=== PATIENT | male | born 1985 | race Caucasian/White ===

== ENCOUNTER 2018-07-05 09:12 | Emergency (ER) | payer OTHER ==
[2018-07-05 09:32] VITALS: BP 134/77
--- NOTE | 2018-07-05 10:01 | UC ---
Throat Pain/Nasal Samson HPI - HPI Summary HPI Summary: Has had 1 mo. of facial pain, post nasal drip which causes cough and feeling ill. Has 1 sick contact. - History of Current Complaint Chief Complaint: UCRespiratory Stated Complaint: COUGH SORE THROAT RESP ISSUE Time Seen by Provider: 07/05/18 09:54 Hx Obtained From: Patient Onset/Duration: Gradual Onset Severity: Mild Pain Intensity: 0 Pain Scale Used: 0-10 Numeric Cough: Nonproductive Associated Signs & Symptoms: Positive: Sinus Discomfort. Negative: Drooling, Wheezing, Nasal Discharge - Epiglottits Risk Factors Epiglottis Risk Factors: Negative - Allergies/Home Medications Allergies/Adverse Reactions: Allergies Allergy/AdvReac Type Severity Reaction Status Date / Time amoxicillin Allergy Hives Verified 07/05/18 09:40 erythromycin base Allergy Hives Verified 07/05/18 09:40 Penicillins Allergy Hives Verified 07/05/18 09:40 Home Medications: Home Medications Losartan TAB* [Cozaar TAB*] 25 mg PO DAILY 07/05/18 [History Confirmed 07/05/18] Marijuana 10 puff INH DAILY 07/05/18 [History Confirmed 07/05/18] Metoprolol Tartrate TAB* [Lopressor TAB*] 25 mg PO BID 07/05/18 [History Confirmed 07/05/18] Omeprazole CAP* [Prilosec CAP* 20 MG] 20 mg PO DAILY 07/05/18 [History Confirmed 07/05/18] PMH/Surg Hx/FS Hx/Imm Hx Previously Healthy: Yes - Surgical History Surgical History: Yes Surgery Procedure, Year, and Place: R hand - Social History Alcohol Use: Rare Substance Use Type: Marijuana Substance Use Comment - Amount & Last Used: states "has medical card" Smoking Status (MU): Never Smoked Tobacco Review of Systems All Other Systems Reviewed And Are Negative: Yes Constitutional: Positive: Negative Skin: Positive: Negative ENT: Positive: Dental Pain, Sore Throat, Sinus Congestion, Sinus Pain/Tenderness Respiratory: Positive: Cough Cardiovascular: Positive: Negative Gastrointestinal: Positive: Negative Neurological: Negative: Headache Physical Exam Triage Information Reviewed: Yes Appearance: Well-Appearing Vital Signs: Initial Vital Signs Temp 99 F 07/05/18 09:24 Pulse 86 07/05/18 09:24 Resp 16 07/05/18 09:24 BP 134/77 07/05/18 09:24 Pulse Ox 98 07/05/18 09:24 ENT: Positive: Pharynx normal, Nasal congestion, Dental tenderness, Sinus tenderness, Uvula midline, Other - +post nasal dirp Respiratory Exam: Normal Cardiovascular Exam: Normal Skin Exam: Normal Throat Pain/Nasal Course/Dx - Course Assessment/Plan: Given duration of nasal congestion and sinus tenderness on exam will tx for bacterial source. Vitals good. Allergies noted. He also wanted a refill of his home medication of omeprazole which I obliged. - Differential Dx/Diagnosis Differential Diagnosis/HQI/PQRI: Influenza, Sinusitis, Tonsillitis, URI Provider Diagnosis: Bacterial sinusitis Discharge - Sign-Out/Discharge Documenting (check all that apply): Patient Departure All imaging exams completed and their final reports reviewed: No Studies - Discharge Plan Condition: Good Disposition: HOME Prescriptions: DOXYcycline CAP(*) [DOXYcycline 100MG CAP(*)] 100 mg PO BID 5 Days #10 cap Omeprazole CAP* [Prilosec CAP* 20 MG] 20 mg PO BID #60 cap. Patient Education Materials: Sinusitis (ED) Referrals: No Primary Care Phys,NOPCP [Primary Care Provider] - [facility] [Outside] Additional Instructions: follow up with primary care for any medication. - Billing Disposition and Condition Condition: GOOD Disposition: Home
== END 2018-07-05 10:07 | disposition home or self-care (01) ==
LOC: UCEAST 09:12
DX: J32.9 Chronic sinusitis, unspecified (principal); B96.89 Other specified bacterial agents as the cause of diseases classified elsewhere; K08.89 Other specified disorders of teeth and supporting structures; Z88.0 Allergy status to penicillin; Z88.1 Allergy status to other antibiotic agents
CPT/HCPCS: 99212; G0463

== ENCOUNTER 2018-09-18 13:52 | Emergency (ER) | payer OTHER ==
[2018-09-18 13:57] VITALS: BP 122/71
--- NOTE | 2018-09-18 14:08 | UC ---
Throat Pain/Nasal Samson HPI - HPI Summary HPI Summary: 32 yo male presents with sinus pain/pressure/congestion for the last 10 days. He tells me that he has had sinus infections many times in the past and this feels the same. Has not been taking anything OTC for his symptoms. Has felt feverish at times, but has not taken his temperature. Denies sore throat, cough , n/v. - History of Current Complaint Chief Complaint: UCRespiratory Stated Complaint: FLU LIKE SYM Time Seen by Provider: 09/18/18 14:08 Hx Obtained From: Patient Onset/Duration: Gradual Onset Severity: Moderate Pain Intensity: 7 Pain Scale Used: 0-10 Numeric - Allergies/Home Medications Allergies/Adverse Reactions: Allergies Allergy/AdvReac Type Severity Reaction Status Date / Time amoxicillin Allergy Hives Verified 07/05/18 09:40 erythromycin base Allergy Hives Verified 07/05/18 09:40 Penicillins Allergy Hives Verified 07/05/18 09:40 PMH/Surg Hx/FS Hx/Imm Hx Endocrine History: Dyslipidemia Cardiovascular History: Hypertension GI/ History: Gastroesophageal Reflux - Surgical History Surgical History: Yes Surgery Procedure, Year, and Place: R hand - Family History Known Family History: Positive: None - Social History Lives: With Family Alcohol Use: None Substance Use Type: Marijuana Substance Use Comment - Amount & Last Used: states "has medical card" Smoking Status (MU): Never Smoked Tobacco Review of Systems All Other Systems Reviewed And Are Negative: Yes Constitutional: Positive: Negative Skin: Positive: Negative Eyes: Positive: Negative ENT: Positive: Nasal Discharge, Sinus Congestion, Sinus Pain/Tenderness Respiratory: Positive: Negative Cardiovascular: Positive: Negative Gastrointestinal: Positive: Negative Neurovascular: Positive: Negative Neurological: Positive: Negative Psychological: Positive: Negative Physical Exam - Summary Physical Exam Summary: GENERAL: NAD. WDWN. No pain distress. SKIN: No rashes, sores, lesions, or open wounds. HEENT: Head: AT/NC Eyes: EOM intact. Conjunctiva clear without inflammation or discharge. Ears: Hearing grossly normal. TMs intact, no bulging, erythema, or edema. Nose: Nasal mucosa without erythema or edema and without discharge. TTP maxillary and frontal sinus. Throat: Posterior oropharynx without exudates, erythema, or tonsillar enlargement. Uvula midline. NECK: Supple. Nontender. No lymphadenopathy. CHEST: CTAB. No r/r/w. No accessory muscle use. Breathing comfortably and in no distress. CV: RRR. Without m/r/g. Pulses intact. NEURO: Alert. PSYCH: Age appropriate behavior. Triage Information Reviewed: Yes Vital Signs: Initial Vital Signs Temp 98 F 09/18/18 13:55 Pulse 65 09/18/18 13:55 Resp 16 09/18/18 13:55 BP 122/71 09/18/18 13:55 Pulse Ox 100 09/18/18 13:55 Vital Signs Reviewed: Yes Throat Pain/Nasal Course/Dx - Course Course Of Treatment: Sinusitis - pt prefers to be on antibiotics on this time and does not want to try OTC medications. - Differential Dx/Diagnosis Provider Diagnosis: Sinusitis Discharge - Sign-Out/Discharge Documenting (check all that apply): Patient Departure All imaging exams completed and their final reports reviewed: No Studies - Discharge Plan Condition: Stable Disposition: HOME Prescriptions: DOXYcycline CAP(*) [DOXYcycline 100MG CAP(*)] 100 mg PO BID #20 cap Patient Education Materials: Sinusitis (ED) Referrals: No Primary Care Phys,NOPCP [Primary Care Provider] - Additional Instructions: If you develop a fever, shortness of breath, chest pain, new or worsening symptoms - please call your PCP or go to the ED. - Billing Disposition and Condition Condition: STABLE Disposition: Home
== END 2018-09-18 14:19 | disposition home or self-care (01) ==
LOC: UCEAST 13:52
DX: J32.9 Chronic sinusitis, unspecified (principal); Z88.0 Allergy status to penicillin; Z88.1 Allergy status to other antibiotic agents; I10 Essential (primary) hypertension
CPT/HCPCS: 99212; G0463

== ENCOUNTER 2018-10-04 09:27 | Emergency (ER) | payer OTHER ==
--- NOTE | 2018-10-04 10:24 | UC ---
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 Pt reports while boarding done [employer], he was cross by a skier and he fell on his Rt knee. He was able to walk down hill after injury. He irrigated abrasion and applied Neosporyn topical antibiotic and took Ibuprofen. This morning pain in his knee worsen w/ mil swelling around abrasion. He took Ibuprofen PO again around 0900AM and pain now is 4/10 now. Pt denies fever, numbness or tingling sensation over the Rt lower extremity, SOB, calf pain, abdominal pain, N/V/d. - History of Current Complaint Chief Complaint: UCLowerExtremity Stated Complaint: R KNEE INJURY Time Seen by Provider: 10/04/18 10:12 Hx Obtained From: Patient Onset/Duration: Sudden Onset, Lasting Days - 1 day, Still Present, Worse Since - today Severity Initially: Severe Severity Currently: Moderate Pain Intensity: 8 Pain Scale Used: 0-10 Numeric Character: Sharp Aggravating Factor(s): Movement, Prolonged Standing, Stairs Alleviating Factor(s): Rest, OTC Meds Associated Signs And Symptoms: Positive: Swelling, Bruising. Negative: Fever, Weakness, Numbness, Tingling Able to Bear Weight: Yes - Risk Factors Septic Arthritis Risk Factor: Negative Gout Risk Factor: Negative - Allergies/Home Medications Allergies/Adverse Reactions: Allergies Allergy/AdvReac Type Severity Reaction Status Date / Time amoxicillin Allergy Hives Verified 10/04/18 09:48 erythromycin base Allergy Hives Verified 10/04/18 09:48 Penicillins Allergy Hives Verified 10/04/18 09:48 PMH/Surg Hx/FS Hx/Imm Hx Previously Healthy: Yes Other Endocrine History: IPP Cardiovascular History: Cardiac Disease, Atrial Fibrillation - Surgical History Surgical History: Yes Surgery Procedure, Year, and Place: R hand - Family History Known Family History: Positive: Cardiac Disease - Social History Occupation: Unemployed Lives: With Family Alcohol Use: None Substance Use Type: Marijuana Substance Use Comment - Amount & Last Used: states "has medical card" Smoking Status (MU): Never Smoked Tobacco Review of Systems All Other Systems Reviewed And Are Negative: Yes Constitutional: Positive: Negative Skin: Positive: Bruising - over RT knee s/p fall, Other - Rt knee abrasion w/ mild swelling, minor abrasions over Rt hand and Rt side of hip ENT: Positive: Negative Respiratory: Positive: Negative Cardiovascular: Positive: Negative Gastrointestinal: Positive: Negative Genitourinary: Positive: Negative Motor: Positive: Negative Neurovascular: Positive: Negative Musculoskeletal: Positive: Decreased ROM - RT knee, Other: - RT knee pain s/p fall Neurological: Positive: Negative Psychological: Positive: Negative Is Patient Immunocompromised?: No Physical Exam - Summary Physical Exam Summary: Vital Signs Reviewed: Yes General: well developed, well nourished male sitting in the examining table w/o any apparent distress Eyes: Positive: Conjunctiva Clear - PERRLA, EOMI, fundi grossly normal ENT: Positive: Normal ENT inspection, Hearing grossly normal, Pharynx normal, TMs normal Neck: Positive: Supple, Nontender, No Lymphadenopathy Respiratory: Positive: Chest nontender, Lungs clear, Normal breath sounds, No respiratory distress Cardiovascular: Positive: RRR, No Murmur, Pulses Normal, Brisk Capillary Refill Abdomen Description: Positive: Nontender, No Organomegaly, Soft. Negative: CVA Tenderness (R), CVA Tenderness (L) Bowel Sounds: Positive: Present Musculoskeletal: Positive: Strength Intact, No Edema, Other: - Knee: Pt is able to bear weight and ambulate with limping. No surface trauma, mild soft tissue swelling over the medial superior quadrant, moderate abrasion w/ mild erythema over the patella, no obvious effusion. The L knee is without obvious asymmetry or deformity when compared with the R knee. Decreased ROM of RT knee due to pain. Positive tenderness to palpation of the patella, no effusion or ballottement. No tenderness over the infrapatellar tendon. Point tenderness over the medial joint line, No tenderness over the medial or lateral tibial plateaus. No tenderness over the proximal fibular head, No tenderness, fullness or mass of the popliteal fossa. No quadriceps tenderness. No laxity of the ACL. PCL, MCL, or LCL. no collateral ligament laxity to valgus or varus stress. Negative Keyla/Drawer sign. Negative Pradeep. Distal motor and neurovascular status intact. Neurological Exam: Normal Psychological Exam: Normal Skin Exam: Minor abrasions over the dorsal side of the Rt hand and Rt iliac crest and RT elbow, mild tenderness to palpation and Rt elbow. no drainage observed. Pt w/ a polie ankle monitor bracelet. Triage Information Reviewed: Yes Vital Signs: Initial Vital Signs Temp 98.2 F 10/04/18 09:42 Pulse 77 10/04/18 09:42 Resp 16 10/04/18 09:42 BP 124/73 10/04/18 09:42 Pulse Ox 100 10/04/18 09:42 Knee Pain Course/Dx - Course Course Of Treatment: 33 y/o male presents to the urgent care c/o RT knee pain w/ abrasion and some other discrete abrasions in his hip, ribs and Rt hand s/p falling while long boarding [place] [employer] last night around 1700pm. Pt reports while boarding done [employer], he was cross by a skier and he fell on his Rt knee. He was able to walk down hill after injury. He irrigated abrasion and applied Neosporyn topical antibiotic and took Ibuprofen. this morning pain in his knee worsen w/ mil swelling around abrasion . He took Ibuprofen PO again around 0900AM and pain now is 4/10 now. Pt denies fever, numbness or tingling sensation over the Rt lower extremity, SOB, calf pain, abdominal pain, N/V/d. Hx obtained. Abrasions cleaned w/ iodine swab and bacitracin oint applied over abrasions. RT knee X- ray ordered: IMPRESSION: No fracture of the right knee is noted. Pt most likely with a RT knee Sprain and possible infected abrasion gwyn Rt knee. Pt knee immobilized with MERI bandage and knee immobilizer. Pt PCN allergic. Pt Rx Ibuprofen, Clindamycin PO and Bacitracin Oint PO to alleviate symptoms. Pt advised RICE, take medication for pain and to f/u with her Orthopedic DR Beckham in 2-3days for further evaluation treatment. Advised if Rt knee swelling increases and he develops fever to inmediatly go to the Er for further management. Pt understood and agreed and left the clinic ambulating. - Differential Dx/Diagnosis Differential Diagnosis/HQI/PQRI: Abrasion, Cellulitis, Contusion, Fracture ( Closed), Fracture (Open), Internal Derangement Of Knee, Puncture Wound, Sprain, Strain, Tendonitis Provider Diagnosis: Right knee sprain, Hematoma, Injury of knee, right, superficial, infected Discharge - Sign-Out/Discharge Documenting (check all that apply): Patient Departure - d/C home All imaging exams completed and their final reports reviewed: Yes - Discharge Plan Condition: Stable Disposition: HOME Prescriptions: Bacitracin OINTMENT* 1 applic TOPICAL BID #1 tube Clindamycin Cap(NF) [Clindamycin Cap 300 mg Cap(NF)] 300 mg PO TID #30 cap Ibuprofen TAB* [Motrin TAB* 800 MG] 800 mg PO Q6H PRN #30 tab PRN Reason: knee pain Patient Education Materials: Knee Sprain (ED), Hematoma (ED) Referrals: [facility] [place] [facility] [Outside] - 2 Days Christina Beckham MD [Medical Doctor] - 2 Days Additional Instructions: 1-Please take Ibuprofen PO q6-8hrs medications as directed to alleviate pain and swelling. 2-Please apply ice, keep your knee immobilized with the splint. Please avoid too much weight bearing, elevate your leg, avoid strenuous exercise or standing for long periods of time 3- Please take Clindamycin PO as directed full course of antibiotic. Please take yogurt w/ probiotics or Culturelle to protect your GI system 3-Please f/u with Orthopedic Dr Beckham in 2-3 days for further evaluation and treatment since possible ligament tear. - Billing Disposition and Condition Condition: STABLE Disposition: Home
[2018-10-04 11:47] VITALS: BP 123/69
== END 2018-10-04 12:34 | disposition home or self-care (01) ==
LOC: UCEAST 09:27
DX: S83.91XA Sprain of unspecified site of right knee, initial encounter (principal); S80.01XA Contusion of right knee, initial encounter; L08.9 Local infection of the skin and subcutaneous tissue, unspecified; Z88.0 Allergy status to penicillin; Z88.1 Allergy status to other antibiotic agents; W19.XXXA Unspecified fall, initial encounter; Y92.828 Other wilderness area as the place of occurrence of the external cause
CPT/HCPCS: 99213; G0463

== ENCOUNTER 2019-10-07 17:51 | Emergency (ER) | payer OTHER ==
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
--- OUTSIDE RECORDS SUMMARY | 2019-10-07 18:31 | XMS REPORT ---
:1985 Author Organization [facility] Care Team Providers Name Role Phone MELANIE DELGADILLO Primary Care Physician Unavailable Allergies, Adverse Reactions, Alerts Allergy Code CodeSystem Reaction Severity Criticality Status Start Substance Date Moderate Medications Medication Medication Medication Start Stop Route Dose Status Fill Code CodeSystem Date Date Instructions RxNorm Problems Problem Name Code CodeSystem Alternate Alternate Start End Status Narrative Code CodeSystem Date Date Adjustment 32726851 SNOMED-CT Active disorder -25 with anxiety Relevant diagnostic tests/laboratory data Narrative No Information Procedures Procedure Code CodeSystem Target Date of Status Service Device Device Device Name Site Procedure Delivery Code Name UID Location SNOMED-CT () 2018-12-[address], [id number] SNOMED-CT () 2018-12-[address], [id number] SNOMED-CT () 2019-04-[address], [id number] SNOMED-CT () 2019-04-[address], [id number] SNOMED-CT () 2019-04-[address], [id number] SNOMED-CT () 2019-04-[address], [id number] SNOMED-CT () 2019-05-[address], [id number] SNOMED-CT () 2019-05-[address], [place], [id number] SNOMED-CT () 2019-05-[address], [id number] SNOMED-CT () 2019-06-[address], [id number] SNOMED-CT () 2019-06-[address], [id number] SNOMED-CT () 2019-06-[address], [id number] SNOMED-CT () 2019-07-[address], [id number] Encounters/Encounter Diagnoses Encounter Encounter Diagnosis Diagnosis Diagnosis Date of Service Name Code Code Name CodeSystem Diagnosis Delivery Location Initial 11095 SNOMED-CT 2018-12-31 [facility] [address] [place], [place], [id number] Vital Signs No Information Social History Element Description Description Start End Code CodeSystem AdditionalInfo Date Date SexAssignedAtBirth Male 1985-0 M AdministrativeGender 3-18 Hospital Discharge Instructions Reason For Referral Medical Equipment FDA Assessments
--- OUTSIDE RECORDS SUMMARY | 2019-10-07 18:31 | XMS REPORT ---
:1985 Author Organization [facility] Care Team Providers Name Role Phone MELANIE DELGADILLO Primary Care Physician Unavailable Allergies, Adverse Reactions, Alerts Allergy Code CodeSystem Reaction Severity Criticality Status Start Substance Date Moderate Medications Medication Medication Medication Start Stop Route Dose Status Fill Code CodeSystem Date Date Instructions RxNorm Problems Problem Name Code CodeSystem Alternate Alternate Start End Status Narrative Code CodeSystem Date Date Adjustment [id number] SNOMED-CT Active disorder -25 with anxiety Relevant diagnostic tests/laboratory data Narrative No Information Procedures Procedure Code CodeSystem Target Date of Status Service Device Device Device Name Site Procedure Delivery Code Name UID Location SNOMED-CT () 2018-12-[address], [id number] SNOMED-CT () 2018-12-[address], [id number] SNOMED-CT () 2019-04-[address], [id number] SNOMED-CT () 2019-04-[address], [id number] SNOMED-CT () 2019-04-[address], [id number] SNOMED-CT () 2019-04-[address], [id number] SNOMED-CT () 2019-05-[address], [id number] SNOMED-CT () 2019-05-[address], [place], [id number] SNOMED-CT () 2019-05-[address], [id number] SNOMED-CT () 2019-06-[address], [id number] SNOMED-CT () 2019-06-[address], [id number] SNOMED-CT () 2019-06-[address], [id number] SNOMED-CT () 2019-07-[address], [id number] SNOMED-CT () 2019-08-[address], [id number] SNOMED-CT () 2019-08-[address], [id number] SNOMED-CT () 2019-09-[address], [id number] SNOMED-CT () 2019-09-[address], [id number] Encounters/Encounter Diagnoses Encounter Encounter Diagnosis Diagnosis Diagnosis Date of Service Name Code Code Name CodeSystem Diagnosis Delivery Location Initial 01477 SNOMED-CT 2018-12-31 [facility] [address] [place] [address], [id number] Vital Signs No Information Social History Element Description Description Start End Code CodeSystem AdditionalInfo Date Date SexAssignedAtBirth Male 1986-0 M AdministrativeGender 3-18 Hospital Discharge Instructions Reason For Referral Medical Equipment FDA Assessments
--- OUTSIDE RECORDS SUMMARY | 2019-10-07 18:31 | XMS REPORT ---
:1985 Author Organization [facility] Care Team Providers Name Role Phone MELANIE DELGADILLO Primary Care Physician Unavailable Allergies, Adverse Reactions, Alerts Allergy Code CodeSystem Reaction Severity Criticality Status Start Substance Date Moderate Medications Medication Medication Medication Start Stop Route Dose Status Fill Code CodeSystem Date Date Instructions RxNorm Problems Problem Name Code CodeSystem Alternate Alternate Start End Status Narrative Code CodeSystem Date Date Adjustment [id number] SNOMED-CT Active disorder -25 with anxiety Relevant diagnostic tests/laboratory data Narrative No Information Procedures Procedure Code CodeSystem Target Date of Status Service Device Device Device Name Site Procedure Delivery Code Name UID Location SNOMED-CT () 2018-12-[address], [id number] SNOMED-CT () 2018-12-[address], [id number] SNOMED-CT () 2019-04-[address], [id number] SNOMED-CT () 2019-04-[address], [id number] SNOMED-CT () 2019-04-[address], [id number] SNOMED-CT () 2019-04-[address], [id number] SNOMED-CT () 2019-05-[address], [id number] SNOMED-CT () 2019-05-[address], [place], [id number] SNOMED-CT () 2019-05-[address], [id number] SNOMED-CT () 2019-06-[address], [id number] SNOMED-CT () 2019-06-[address], [id number] SNOMED-CT () 2019-06-[address], [id number] SNOMED-CT () 2019-07-[address], [id number] SNOMED-CT () 2019-08-[address], [id number] SNOMED-CT () 2019-08-[address], [id number] SNOMED-CT () 2019-09-[address], [id number] Encounters/Encounter Diagnoses Encounter Encounter Diagnosis Diagnosis Diagnosis Date of Service Name Code Code Name CodeSystem Diagnosis Delivery Location Initial 86859 SNOMED-CT 2018-12-31 [facility] [address] [place] [address], [id number] Vital Signs No Information Social History Element Description Description Start End Code CodeSystem AdditionalInfo Date Date SexAssignedAtBirth Male 1986-0 M AdministrativeGender 3-18 Hospital Discharge Instructions Reason For Referral Medical Equipment FDA Assessments
[2019-10-07 18:40] VITALS: BP 158/86
--- NOTE | 2019-10-07 18:47 | UC ---
Throat Pain/Nasal Samson HPI - HPI Summary HPI Summary: 34-year-old male presents with 1-1/2 to 2 week history of nasal congestion, sinus pressure, postnasal drip, and left ear pain. States over the last few days started developing a mild sore throat and dry nonproductive cough. Yesterday developed some red eye redness and this morning woke up with his eye crusted shut. Reports history of recurrent sinus infections around this time each year. Denies fever, chills, ear drainage, tinnitus, hearing loss, dysphagia, chest pain, shortness of breath, abdominal pain, nausea, vomiting, or diarrhea. - History of Current Complaint Chief Complaint: UCEar Stated Complaint: EARACHE Time Seen by Provider: 10/07/19 18:30 Hx Obtained From: Patient Pain Intensity: 7 - Allergies/Home Medications Allergies/Adverse Reactions: Allergies Allergy/AdvReac Type Severity Reaction Status Date / Time No Known Allergies Allergy Verified 10/07/19 18:34 Home Medications: Home Medications Marijuana 10 puff INH DAILY 07/05/18 [History Confirmed 10/07/19] Metoprolol Tartrate TAB* [Lopressor TAB*] 25 mg PO DAILY 07/05/18 [History Confirmed 10/07/19] Omeprazole CAP (NF) [Prilosec CAP* 20 MG] 40 mg PO DAILY 07/05/18 [History Confirmed 10/07/19] Amoxicillin/Clavulanate TAB* [Augmentin TAB 875*] 875 mg PO BID #20 tab [Rx] Buspirone HCl 25 mg PO DAILY 10/07/19 [History Confirmed 10/07/19] Fluticasone NASAL SPRAY 50MCG* [Flonase NASAL SPRAY 50MCG*] 2 spray BOTH NARES DAILY #1 btl 10/07/19 [Rx] Naproxen Sodium [Aleve] 1 tab PO ONCE PRN 10/07/19 [History Confirmed 10/07/19] PMH/Surg Hx/FS Hx/Imm Hx Cardiovascular History: Hypertension GI/ History: Gastroesophageal Reflux Psychological History: Depression - Surgical History Surgical History: Yes Surgery Procedure, Year, and Place: R hand - Family History Known Family History: Positive: Cardiac Disease - Social History Occupation: Employed Full-time Lives: Alone Alcohol Use: Occasionally Substance Use Type: Marijuana Substance Use Comment - Amount & Last Used: states "has medical card" Smoking Status (MU): Never Smoked Tobacco Review of Systems All Other Systems Reviewed And Are Negative: Yes Constitutional: Negative: Fever, Chills Eyes: Positive: Drainage, Eye Redness. Negative: Blurred Vision, Diplopia, Photophobia ENT: Positive: Sore Throat, Ear Ache, Nasal Discharge, Sinus Congestion, Sinus Pain/Tenderness Respiratory: Positive: Cough. Negative: Shortness Of Breath Cardiovascular: Negative: Palpitations, Chest Pain Gastrointestinal: Negative: Abdominal Pain, Vomiting, Diarrhea, Nausea Genitourinary: Positive: Negative Musculoskeletal: Positive: Negative Neurological/Mental Status: Positive: Negative Is Patient Immunocompromised?: No Physical Exam - Summary Physical Exam Summary: GENERAL APPEARANCE: Well developed, well nourished, alert and cooperative, and appears to be in no acute distress. EYES: Right conjunctiva clear. No drainage. Left conjunctival erythema without discharge. EARS: External auditory canals and tympanic membranes clear, hearing grossly intact. NOSE: Moderate nasal congestion. No nasal discharge. Maxillary sinus tenderness. THROAT: Pharyngeal cobblestoning with PND. No tonsilar inflammation, swelling, exudate, or lesions. Uvula midline. NECK: Neck supple, non-tender without lymphadenopathy. CARDIAC: Normal S1 and S2. No S3, S4 or murmurs. Rhythm is regular. There is no peripheral edema, cyanosis or pallor. Extremities are warm and well perfused. Capillary refill is less than 2 seconds. Peripheral pulses intact. LUNGS: Clear to auscultation without rales, rhonchi, wheezing or diminished breath sounds. Cough not observed. ABDOMEN: Positive bowel sounds. Soft, nondistended, nontender. No guarding or rebound. No masses or hepatosplenomegally. MUSKULOSKELETAL: ROM intact to all extremities. No joint erythema or tenderness. Normal muscular development. Normal gait. SKIN: Skin normal color, texture and turgor with no lesions or eruptions. Triage Information Reviewed: Yes Vital Signs: Initial Vital Signs Temp 98.5 F 10/07/19 18:40 Pulse 97 10/07/19 18:40 Resp 18 10/07/19 18:40 BP 158/86 10/07/19 18:40 Pulse Ox 97 10/07/19 18:40 Vital Signs Reviewed: Yes Throat Pain/Nasal Course/Dx - Course Course Of Treatment: 34-year-old male presents with 1-1/2 to 2 week history of nasal congestion, sinus pressure, postnasal drip, and left ear pain. States over the last few days started developing a mild sore throat and dry nonproductive cough. Yesterday developed some red eye redness and this morning woke up with his eye crusted shut. Reports history of recurrent sinus infections around this time each year. Denies fever, chills, ear drainage, tinnitus, hearing loss, dysphagia, chest pain, shortness of breath, abdominal pain, nausea, vomiting, or diarrhea. Afebrile. Hypertensive otherwise vital signs stable. Patient had moderate nasal congestion, maxillary sinus tenderness, normal TMs, left conjunctival erythema without discharge, pharyngeal cobblestoning without tonsillar swelling or exudate, no cervical lymphadenopathy, clear bilateral breath sounds, and otherwise unremarkable exam. Discussed with patient that his symptoms were consistent with an to sinusitis and we'll start him on Augmentin 875 mg 1 tablet twice a day 10 days as well as recommend symptomatic treatment including fluticasone nasal spray 2 sprays each nostril once daily. He is to return here or follow up with primary care in 5-7 days if symptoms do not improve. Anticipatory guidance of warning symptoms are with the patient. Verbalizes understanding and agrees with plan of care. - Differential Dx/Diagnosis Differential Diagnosis/HQI/PQRI: Influenza, Sinusitis, URI Provider Diagnosis: Acute sinusitis Discharge ED - Sign-Out/Discharge Documenting (check all that apply): Patient Departure All imaging exams completed and their final reports reviewed: No Studies - Discharge Plan Condition: Stable Disposition: HOME Prescriptions: Amoxicillin/Clavulanate TAB* [Augmentin TAB 875*] 875 mg PO BID #20 tab Fluticasone NASAL SPRAY 50MCG* [Flonase NASAL SPRAY 50MCG*] 2 spray BOTH NARES DAILY #1 btl Patient Education Materials: Sinusitis (ED) Referrals: No Primary Care Phys,NOPCP [Primary Care Provider] - [facility] REFERRAL [Outside] Additional Instructions: Your history and exam are consistent with a sinus infection. Considering the duration of your symptoms we will treat you with an antibiotic for the infection. Start Augmentin 875 mg 1 tablet twice daily for 10 days. Take with food to avoid upset stomach. Be sure to complete the entire course even if feeling better. Drink plenty of fluids to avoid dehydration especially if you are running any fever. Use a saline rinse kit such as Neti Pot or NeilMed at least twice a day to help thin secretions and promote drainage of the sinuses. Use fluticasone (Flonase) nasal spray 2 sprays each nostril once daily. Use an over the counter decongestant such as Sudafed according to directions to help with congestion. Take over the counter acetaminophen (Tylenol) or ibuprofen (Advil, Motrin) according to directions as needed for pain or fever. Return here or follow-up with primary care in 5-7 days if no improvement in symptoms. I have provided you with the contact information for the [facility] physician referral service if you need assistance with establishing with a provider. Seek immediate medical attention in the emergency room if you have fever greater than 100.5 F despite taking acetaminophen or ibuprofen, have chest pain , difficulty breathing, are unable to swallow, or have any worsening of symptoms. - Billing Disposition and Condition Condition: STABLE Disposition: Home
== END 2019-10-07 19:16 | disposition home or self-care (01) ==
LOC: UCEAST 17:51
DX: J01.90 Acute sinusitis, unspecified (principal); H57.89 Other specified disorders of eye and adnexa; J02.9 Acute pharyngitis, unspecified; R05 Cough; I10 Essential (primary) hypertension; K21.9 Gastro-esophageal reflux disease without esophagitis; F32.9 Major depressive disorder, single episode, unspecified; Z79.899 Other long term (current) drug therapy
CPT/HCPCS: 99212; G0463